=== PATIENT | male | born 2000 | race Caucasian/White ===

== ENCOUNTER 2018-09-28 13:32 | Emergency (ER) | payer OTHER, SELFPAY ==
[2018-09-28 13:34] VITALS: BP 136/84; PULSE 87; RESP 18; TEMP 36.5; O2SAT 97; BMI 23.8
[2018-09-28 15:13] VITALS: PULSE 91; O2SAT 96
--- NOTE | 2018-09-28 15:39 | EKG12_ITS ---
Test Reason : Blood Pressure : / mmHG Vent. Rate : 093 BPM Atrial Rate : 093 BPM P-R Int : 134 ms QRS Dur : 098 ms QT Int : 356 ms P-R-T Axes : 073 100 047 degrees QTc Int : 442 ms Normal sinus rhythm Rightward axis Septal infarct , age undetermined Abnormal ECG Confirmed by CHICHI JARRETT, RADHA ([id number]), film editor BORIS HICKS ([id number] on 09/30/2018 2:02:03 PM Referred By: LINDSEY Confirmed By:RADHA CADET MD
--- NOTE | 2018-09-28 15:41 | ED.VISSUMM ---
- ER Visit Summary Date of Service: 09/28/18 Chief Complaint: Lightheaded History of Present Illness: The patient is a 18 M who is a [employer] student. He reports that he was hit with a dodgeball in the face twice 2 days ago. Reports he fell multiple times. Did not have a loss of consciousness. States that he has not slept well the past 2 nights. He states that during school today he was sitting and began feeling warm, tired, and his head/arms felt heavy. He denies any chest pain, shortness of breath, palpitations, or syncope during this. States the last approximately 20 minutes. Is now back to his baseline. On review of systems patient reports he is nauseated. He is not vomited. He reports he has a dull headache history of 10 severity. He denies any other complaints. Physical Examination: Vitals: Stable. Afebrile. General: Well-nourished and well-developed. Head: Normocephalic atraumatic. Neck: Supple, no lymphadenopathy. No JVD. Nontender. Cardiovascular: Regular rate and rhythm. No murmurs. Respiratory: No respiratory distress. Clear to auscultation bilaterally. Abdominal: Soft, nontender, nondistended, normal bowel sounds. No guarding, rebound, or peritoneal signs. Back: Nontender. Extremities: Nontender, no edema. Skin: Normal color, no rash. Neurologic: Alert and oriented ?3. Cranial nerves II through XII are intact. Normal strength and sensation. Psych: Normal affect. Test Results: EKG is sinus at 93 with normal intervals. No evidence of hypertrophic obstructive cardia myopathy or Brugada syndrome. Emergency Department Course and Treatment: He had negative orthostatic vital signs. He is resting comfortably. Treatment Plan: Patient be discharged instructions to try to get a good night sleep tonight. I do not think that a CT of the head or blood work is indicated. He will be discharged instructions follow-up Dr. Birmingham and[facility]or [facility]2 days if not improving after sleeping. Return to the emergency department for any worsening symptoms. Disposition: To home in improved and stable condition. Impression: 1. Near syncope, uncertain cause. This note was generated with Flashnotes dictation software. It may contain incorrect words, spelling, and punctuation that were not noted in review of the chart prior to signing ED Disposition - Plan for ED Patient: Disposition: Home or Assisted Living Instructions: ED Near Syncope Unkn [facility] - 1-2 Days if not improving Roscoe Birmingham MD [STAFF PHYSICIAN] - 1-2 Days if not improving
--- NOTE | 2018-09-28 15:44 | ED.DCSUM_ITS ---
- ER Visit Summary Date of Service: 09/28/18 Chief Complaint: Lightheaded History of Present Illness: The patient is a 18 M who is a [employer] student. He reports that he was hit with a dodgeball in the face twice 2 days ago. Reports he fell multiple times. Did not have a loss of consciousness. States that he has not slept well the past 2 nights. He states that during school today he was sitting and began feeling warm, tired, and his head/arms felt heavy. He denies any chest pain, shortness of breath, palpitations, or syncope during this. States the last approximately 20 minutes. Is now back to his baseline. On review of systems patient reports he is nauseated. He is not vomited. He reports he has a dull headache history of 10 severity. He denies any other complaints. Physical Examination: Vitals: Stable. Afebrile. General: Well-nourished and well-developed. Head: Normocephalic atraumatic. Neck: Supple, no lymphadenopathy. No JVD. Nontender. Cardiovascular: Regular rate and rhythm. No murmurs. Respiratory: No respiratory distress. Clear to auscultation bilaterally. Abdominal: Soft, nontender, nondistended, normal bowel sounds. No guarding, rebound, or peritoneal signs. Back: Nontender. Extremities: Nontender, no edema. Skin: Normal color, no rash. Neurologic: Alert and oriented ?3. Cranial nerves II through XII are intact. Normal strength and sensation. Psych: Normal affect. Test Results: EKG is sinus at 93 with normal intervals. No evidence of hypertrophic obstructive cardia myopathy or Brugada syndrome. Emergency Department Course and Treatment: He had negative orthostatic vital signs. He is resting comfortably. Treatment Plan: Patient be discharged instructions to try to get a good night sleep tonight. I do not think that a CT of the head or blood work is indicated. He will be discharged instructions follow-up Dr. Birmingham and[facility]-2 days if not improving after sleeping. Return to the emergency department for any worsening symptoms. Disposition: To home in improved and stable condition. Impression: 1. Near syncope, uncertain cause. This note was generated with [employer] dictation software. It may contain incorrect words, spelling, and punctuation that were not noted in review of the chart prior to signing ED Disposition - Plan for ED Patient: Disposition: Home or Assisted Living Instructions: ED Near Syncope Unkn [facility] - 1-2 Days if not improving Roscoe Birmingham MD [STAFF PHYSICIAN] - 1-2 Days if not improving
[2018-09-28 15:56] VITALS: PULSE 104; PULSE 98
--- NOTE | 2018-09-28 15:59 | ED.RN ---
unable to do an appropriate ortho static, pt in hallway 1, dynamap wont work unless plugged in and no accessible outlets available.
--- NOTE | 2018-09-28 16:30 | ED.RN ---
manual bp for orthos
[2018-09-28 16:31] VITALS: BP 120/70; BP 127/81; PULSE 75; PULSE 77
== END 2018-09-28 16:52 | disposition home or self-care (01) ==
PROVIDERS: Emergency Provider Emergency Medicine
DX: R42 Dizziness and giddiness (principal)
CPT/HCPCS: 93005; 99283

== ENCOUNTER → 2020-12-25 15:33 | Outpatient (CLI) | payer OTHER, SELFPAY | PROVIDERS: Referring Provider Family Medicine; Visit Provider Family Medicine | DX: Z23 Encounter for immunization (principal) | CPT/HCPCS: 0031A; 91303 ==